=== PATIENT | male | born 1985 | race American Indian/Alaskan Native ===

== ENCOUNTER 2022-01-29 03:05 | Emergency (ER) | payer OTHER ==
[2022-01-29 03:12] VITALS: BP 142/75
--- NOTE | 2022-01-29 09:07 | Electrocardiograph Report ---
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
== END 2022-01-29 05:26 | disposition left against medical advice (07) ==
LOC: ED 03:05
DX: R07.9 Chest pain, unspecified (principal); Z53.21 Procedure and treatment not carried out due to patient leaving prior to being seen by health care provider
CPT/HCPCS: 93005

== ENCOUNTER 2022-01-31 16:32 | Emergency (ER) | payer OTHER ==
[2022-01-31 18:07] VITALS: BP 125/80
[2022-01-31] MEDS ORDERED: ASPIRIN 325 MG TAB PO ONE (18:08)
--- NOTE | 2022-01-31 18:30 | XRay Report ---
CHEST 2 VIEWS INDICATION / CLINICAL INFORMATION: chest pain. COMPARISON: None available. FINDINGS: SUPPORT DEVICES: None. HEART / MEDIASTINUM: No significant abnormality. LUNGS / PLEURA: No significant pulmonary or pleural abnormality. No pneumothorax. ADDITIONAL FINDINGS: No significant additional findings. IMPRESSION: 1. No acute findings. Signer Name: Aren Phillips MD Signed: 01/31/2022 6:25 PM Workstation Name: [id number]
[2022-01-31 19:40] LABS: Basophils % (Auto) 0.3 % (0.0-1.8); Eosinophils % (Auto) 0.4 % (0.0-4.3); Hemoglobin 14.9 gm/dl (11.8-15.2); Lymphocytes # (Auto) 1.9 K/mm3 (1.2-5.4); Lymphocytes % (Auto) 30.9 % (13.4-35.0); Mean Corpuscular HGB Conc 33 % (32-34); Mean Corpuscular Volume 87 fl (84-94); Monocytes # (Auto) 0.6 K/mm3 (0.0-0.8); Monocytes % (Auto) 9.3 % (0.0-7.3); Platelet Count 178 K/mm3 (140-440); Red Blood Count 5.17 M/mm3 (3.65-5.03); Red Cell Distribution Width 13.5 % (13.2-15.2)
[2022-01-31 19:53] LABS: Alanine Aminotransferase 18 units/L (7-56); Albumin 5.1 g/dL (3.9-5); BUN/Creatinine Ratio 11; Blood Urea Nitrogen 12 mg/dL (9-20); Calcium 9.9 mg/dL (8.4-10.2); Hemolysis Index 3
--- NOTE | 2022-02-01 11:25 | Electrocardiograph Report ---
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
== END 2022-02-02 06:37 | disposition left against medical advice (07) ==
LOC: ED 16:32
DX: R07.9 Chest pain, unspecified (principal); Z53.21 Procedure and treatment not carried out due to patient leaving prior to being seen by health care provider
CPT/HCPCS: 36415; 71046; 80053; 84484; 85025; 93005